=== PATIENT | female | born 1930 | race Caucasian/White ===

== ENCOUNTER 2018-10-12 07:25 | Emergency (ER) | payer BC, MEDICAID ==
[~2018-10-12] VITALS: Ht 160 cm; Wt 59.0 kg
[~2018-10-12 07:25] MED LIST: ACET5SOL5 PO; BACL20TA PO; FURO20TA PO; OLA5T PO; OMEP20CA74 PO; ONDA4TAB5 PO; SIMV10TA84 PO
[2018-10-12] MEDS ORDERED: SODIUM CHLORIDE 0.9% 1,000 ML IV ONE ×2 (07:33→09:18)
[2018-10-12 07:57] LABS: Basophils # (auto) 0 uL; Eosinophils # (auto) 0 uL; Hemoglobin 16.2 g/dL (12.2-16.2); Lymphocytes # (auto) 0.9 uL; Monocytes # (auto) 0.7 uL
[2018-10-12 08:00] LABS: Basophils % (auto) 0.3 % (0.0-2.0); Eosinophils % (auto) 0.1 % (0.0-7.0); Hematocrit 48.3 % (36.0-46.0); Lymphocytes % (auto) 8.6 % (10.0-50.0); Mean Corpuscular Hemoglobin 34.6 pg (28.0-32.0); Mean Corpuscular Hgb Conc. 33.5 g/dL (32.0-36.0); Mean Corpuscular Volume 103.3 fL (80.0-100.0); Monocytes % (auto) 6.2 % (0.0-12.0); Neutrophils % (auto) 84.8 % (37.0-80.0); Nucleated Red Blood Cells % 0.1 %; Platelet Count (auto) 461 10^3/uL (140-450); Red Blood Cells 4.67 10^6/uL (4.0-5.20); Red Cell Distribution Width 14.2 % (11.8-14.3); White Blood Cell 10.7 10^3/uL (4.4-10.8)
[2018-10-12 08:14] LABS: Albumin 2.8 g/dL (3.4-5.0); BUN/Creatinine Ratio 19.4; Calcium 9.7 mg/dL (8.5-10.1); Partial Thromboplastin Time 22.8 sec (23.78-33.04); Potassium 4.7 mmol/L (3.5-5.1); Prothrombin Time 10.7 sec (9.27-12.13)
[2018-10-12 08:19] LABS: Bilirubin, Total 0.6 mg/dL (0.2-1.0); Total Protein 6.9 g/dL (6.4-8.2)
[2018-10-12] MEDS ORDERED: cefTRIAXone 1GM/50ML D5W 50 ML IV ONE (09:30)
[2018-10-12] MEDS ORDERED: AZITHROMYCIN 500MG/ 250ML 250 ML IV ONE (09:30)
[2018-10-12 11:00] VITALS: BP 107/68
== END 2018-10-12 15:54 | disposition home or self-care (01) ==
LOC: ER 07:25 → EDUNIT# 07:25 → EDBD 07:25 → ER 15:54
DX: J18.9 Pneumonia, unspecified organism (principal); F03.90 Unspecified dementia, unspecified severity, without behavioral disturbance, psychotic disturbance, mood disturbance, and anxiety; M19.90 Unspecified osteoarthritis, unspecified site; J44.9 Chronic obstructive pulmonary disease, unspecified; I10 Essential (primary) hypertension; F41.9 Anxiety disorder, unspecified; F32.9 Major depressive disorder, single episode, unspecified
CPT/HCPCS: 36415; 71045; 71250; 74176; 80053; 83605; 83880; 84484; 85025; 85610; 85730; 87040; 96365; 96366; 96368; 99284; J0456; J0696; J7030